=== PATIENT | female | born 1995 | race African-American/Black ===

== ENCOUNTER 2020-05-03 10:18 | Emergency (ER) | payer SELFPAY ==
[~2020-05-03] VITALS: Ht 152.4 cm; Wt 65.9 kg
[2020-05-03 10:23] VITALS: BP 119/78; Ht 152.4 cm; Wt 65.9 kg
[2020-05-03 10:58] LABS: HCG URINE POSITIVE (NEGATIVE)
[2020-05-03 10:59] LABS: BILIRUBIN NEGATIVE (NEGATIVE); GLUCOSE NEGATIVE (NEGATIVE); KETONE NEGATIVE (NEGATIVE); NITRITE NEGATIVE (NEGATIVE); UROBILINOGEN NORMAL (NORMAL)
[2020-05-03] MEDS ORDERED: ZPAK PO (11:08)
== END 2020-05-03 11:22 | disposition home or self-care (01) ==
LOC: D.ER 10:18
PROVIDERS: Emergency Medicine
DX: O99.519 Diseases of the respiratory system complicating pregnancy, unspecified trimester (principal); Z3A.00 Weeks of gestation of pregnancy not specified; R42 Dizziness and giddiness

== ENCOUNTER 2020-05-25 08:10 | Emergency (ER) | payer BC ==
[~2020-05-25] VITALS: Ht 152.4 cm; Wt 63.6 kg
[2020-05-25 08:10] VITALS: Ht 152.4 cm; Wt 63.6 kg
[~2020-05-25 08:10] MED LIST: ZPAK PO
[2020-05-25 09:01] LABS: BASOPHILS 0 % (0-2); HEMATOCRIT 40.1 % (36.0-48.0); HEMOGLOBIN 13.1 g/dL (12-16); IMMATURE GRANULOCYTES 0.3 % (0-5); LYMPHOCYTES 33.7 % (15-50); MCH 29.8 pg (26.0-34.0); MCHC 32.7 g/dL (31.0-37.0); MCV 91.1 fL (80.0-100.0); MEAN PLATELET VOLUME 9.3 fL (7.4-10.4); MONOCYTES 13.2 % (2-11); NEUTROPHILS 51.8 % (40-80); PLATELET COUNT 253 10x3/uL (130-400); RDW 13.1 % (11.5-14.5)
[2020-05-25 09:09] LABS: CALC OSMOLALITY 265 mosm/kg (275-300); CALCIUM 9.1 mg/dL (8.5-10.1); CARBON DIOXIDE 26.7 mmol/L (21.0-32.0); CHLORIDE - SERUM 101 mmol/L (98-107); CREATININE - SERUM 0.7 mg/dL (0.6-1.3); GLUCOSE 90 mg/dL (74-106); POTASSIUM - SERUM 3.7 mmol/L (3.5-5.1); SODIUM 134 mmol/L (136-145); UREA NITROGEN 7 mg/dL (7-18); eGFR NON AFRICAN AMERICAN > 90 mL/min (90-120)
[2020-05-25 09:41] LABS: ALBUMIN 3.9 g/dL (3.4-5.0); ALKALINE PHOSPHATASE 52 U/L (30-120); ALT (SGPT) 24 U/L (10-68); AMYLASE - SERUM 54 U/L (25-115); BILIRUBIN - TOTAL 0.38 mg/dL (0.2-1.3); HCG - QUANTITATIVE (MATERNAL) 60299 mIU/mL; LIPASE 90 U/L (73-393); PROTEIN - SERUM 7.6 g/dL (6.4-8.2); TROPONIN-I < 0.017 ng/mL (0.000-0.060)
[2020-05-25 09:42] LABS: BILIRUBIN NEGATIVE (NEGATIVE); GLUCOSE NEGATIVE (NEGATIVE); KETONE NEGATIVE (NEGATIVE); NITRITE NEGATIVE (NEGATIVE)
[2020-05-25 13:03] VITALS: BP 110/52
== END 2020-05-25 13:04 | disposition home or self-care (01) ==
LOC: D.ER 08:10
PROVIDERS: Family Medicine
DX: O26.891 Other specified pregnancy related conditions, first trimester (principal); Z3A.09 9 weeks gestation of pregnancy; K43.9 Ventral hernia without obstruction or gangrene

== ENCOUNTER 2020-06-02 08:05 | Emergency (ER) | payer BC ==
[~2020-06-02] VITALS: Ht 152.4 cm; Wt 62.9 kg
[2020-06-02 08:08] VITALS: BP 150/83; Ht 152.4 cm; Wt 62.9 kg
== END 2020-06-02 08:30 | disposition home or self-care (01) ==
LOC: D.ER 08:05
DX: O26.891 Other specified pregnancy related conditions, first trimester (principal); Z3A.09 9 weeks gestation of pregnancy; K42.9 Umbilical hernia without obstruction or gangrene

== ENCOUNTER 2021-04-09 13:35 | Emergency (ER) | payer BC ==
[~2021-04-09] VITALS: Ht 152.4 cm; Wt 63.6 kg
[~2021-04-09 13:35] MED LIST changes: +MOTRIN600 MG PO
[2021-04-09 13:40] VITALS: Ht 152.4 cm; Wt 63.6 kg
[2021-04-09 14:26] LABS: BILIRUBIN NEGATIVE (NEGATIVE); KETONE NEGATIVE (NEGATIVE); NITRITE NEGATIVE (NEGATIVE); UROBILINOGEN NORMAL mg/dL (< 2)
[2021-04-09 14:30] LABS: HCG URINE NEGATIVE (NEGATIVE)
[2021-04-09] MEDS ORDERED: DICLOFENAC SODI50 MG PO (14:42)
[2021-04-09 15:17] VITALS: BP 115/69
== END 2021-04-09 15:17 | disposition home or self-care (01) ==
LOC: D.ER 13:35
PROVIDERS: Family Medicine
DX: M54.5 Low back pain (principal)